=== PATIENT | female | born 1955 | race Caucasian/White ===

== ENCOUNTER 2016-06-18 12:51 | Emergency (ER) | payer OTHER ==
[~2016-06-18] VITALS: Ht 154.9 cm; Wt 81.0 kg
[~2016-06-18 12:51] MED LIST: DOXY100T PO; ESTR2TAB PO; LEVO100T4 PO; PERC5TAB12 PO; VENTAER INH; ZITH250T PO
[2016-06-18 13:05] VITALS: BP 156/85; PULSE 86; RESP 16; TEMP 98; O2SAT 97
[2016-06-18] MEDS ORDERED: ESTR1TAB PO (13:24)
[2016-06-18] MEDS ORDERED: LEVO.1 PO (13:24)
--- NOTE | 2016-06-18 13:29 | PD ---
HPI Chief Complaint: Fall Time Seen by Provider: 13:19 Travel History International Travel<30 days: No Contact w/Intl Traveler<30days: [place] Country Traveled to: [facility] Traveled to known affect area: No History of Present Illness HPI 60-year-old female presents to the ER today because she states that she tripped and fell while [place] cruise ship [place] ago, had a loss of consciousness, has been nauseous and lightheaded since the injury, has been having left rib pains. She denies any shortness of breath, fevers, vomiting, or any other symptoms. She states that she had just returned to port and wants to get checked out. She states the pain is a 10 out of 10. Modifying Factors: None Associated Signs & Symptoms: Trip and fall, head injury, loss of consciousness, nausea, lightheadedness, left rib pain Risk Factors: None PFSH Past Medical History Arthritis: Yes Cancer: Yes (SKIN) High Cholesterol: Yes Diminished Hearing: No Gastrointestinal Disorders: Yes (DIVERTICULOSIS) GERD: Yes Herniated Disk: Yes Migraines: Yes Pneumonia: Yes (BRONCHIAL) Seizures: Yes Thyroid Disease: Yes (HYPOTHYROID) Influenza Vaccination: No ?: Not LMP: Traci- Menopausal: Yes : 2 Para: 2 Past Surgical History Cholecystectomy: Yes Hysterectomy: Yes Tonsillectomy: Yes Other Surgery: Yes (C5, C6, C7 NECK FUSION WITH PLATE S/P WORK INJURY) Social History Alcohol Use: Yes ("MAYBE 4 A YEAR") Tobacco Use: No (QUIT AGE 44) Substance Use: No Allergies-Medications (Allergen,Severity, Reaction): Coded Allergies: Erythromycin (Verified Allergy, Severe, Nausea/Vomiting, 05/29/15) Flagyl (Verified Allergy, Severe, Swelling, 05/29/15) Keflex (Verified Allergy, Severe, Hives, 05/29/15) Cipro (Verified Allergy, Unknown, HIVES, 05/29/15) Reported Meds & Prescriptions Reported Meds & Active Scripts Active Reported Estradiol 1 Mg Tab 1 Mg PO DAILY Synthroid (Levothyroxine Sodium) 100 Mcg Tab 100 Mcg PO DAILY Review of Systems Except as stated in HPI: all other systems reviewed are Neg Physical Exam Narrative GENERAL: Well-developed middle age white female patient currently awake, alert and oriented 3. SKIN: Focused skin assessment warm/dry. HEAD: Atraumatic. Normocephalic. EYES: Pupils equal and round. No scleral icterus. No injection or drainage. ENT: No nasal bleeding or discharge. Mucous membranes pink and moist. NECK: Trachea midline. No JVD. CARDIOVASCULAR: Regular rate and rhythm. No murmur appreciated. CHEST: Mild left lateral chest wall tenderness without deformity or crepitance. No retractions or use of accessory muscles. RESPIRATORY: No accessory muscle use. Clear to auscultation. Breath sounds equal bilaterally. GASTROINTESTINAL: Abdomen soft, non-tender, nondistended. Hepatic and splenic margins not palpable. MUSCULOSKELETAL: No obvious deformities. No clubbing. No cyanosis. No edema. NEUROLOGICAL: Awake and alert. No obvious cranial nerve deficits. Motor grossly within normal limits. Normal speech. PSYCHIATRIC: Appropriate mood and affect; insight and judgment normal. Data Data Last Documented VS Vital Signs Date Time Temp Pulse Resp B/P Pulse Ox O2 Delivery O2 Flow Rate FiO2 06/18/16 13:05 98.0 86 16 156/[address] Brain W/O Iv Contrast(Rout) (06/18/16 13:19) Ct Cerv Spine W/O Contrast (06/18/16 13:19) Ribs, Uni (W/Exp Cxr-Min 3vw) (06/18/16 13:29) MDM Medical Decision Making Medical Screen Exam Complete: Yes Emergency Medical Condition: Yes Medical Record Reviewed: Yes Interpretation(s) Last 24 hours Impressions Ribs X-Ray 06/18/16 1329 Signed Impressions: Service Date/Time: Saturday, June 18, 2016 13:33 - CONCLUSION: No evidence of displaced rib fracture or acute cardiopulmonary process. Christoph De La Rosa MD Head CT 06/18/16 1319 Signed Impressions: Service Date/Time: Saturday, June 18, 2016 13:37 - CONCLUSION: Negative exam. Quan Toscano MD Differential Diagnosis Trip and fall, head injury, left rib painsrib fractures versus contusions versus acute intracranial injuries Narrative Course X-rays and CAT scans did not reveal any signs of acute processes. At this point , my plan would be to release the patient with follow-up to primary care physician. Return for any worsening in symptoms as needed. The plan has discussed with her and she states understanding. Diagnosis Primary Impression: Concussion Additional Impression: Contusion of rib on left side Med/Other Pt SpecificInfo: Prescription(s) given Scripts Ondansetron Odt (Zofran Odt)4 Mg Tab4 Mg SL Q6HR PRN (Nausea/Vomiting) #7 TAB Ref 0 Prov:Rachel Myles MD 06/18/16 Hydrocodone-Acetaminophen (Lortab)5-325 Mg Tab1 Tab PO Q6H PRN (PAIN) #15 TAB Ref 0 Prov:Rachel Myles MD 06/18/16 Disposition: 01 DISCHARGE HOME Condition: Stable Rachel Myles MD Jun 18, 2016 13:29
--- NOTE | 2016-06-18 14:01 | RADHPO ---
EXAM DATE/TIME: 06/18/2016 13:33 [facility] COMPARISON: No previous studies available for comparison. INDICATIONS : Fall, complains of left posterior rib pain. MEDICAL HISTORY : None. SURGICAL HISTORY : None. ENCOUNTER: Initial ACUITY: 4 - 6 days PAIN SCORE: 10/10 LOCATION: Left posterior Ribs FINDINGS: Multiple views of the left ribs were performed. There is no evidence of displaced fracture. No dest ructive lesions or areas of periosteal thickening are seen. Expiratory view of the chest is negative for pneumothorax. The mediastinal structures are midline. CONCLUSION: No evidence of displaced rib fracture or acute cardiopulmonary process. Christoph De La Rosa MD on June 18, 2016 at 13:59 Board Certified Radiologist. This report was verified electronically.
--- NOTE | 2016-06-18 14:02 | RADHPO ---
EXAM DATE/TIME: 06/18/2016 13:37 [facility] COMPARISON: No previous studies available for comparison. INDICATIONS : Fell and hit head. RADIATION DOSE: 57.76 CTDIvol (mGy) MEDICAL HISTORY : Seizures. Hypothyroidism. SURGICAL HISTORY : Tonsillectomy. Fusion, cervical. ENCOUNTER: Initial ACUITY: 4 - 6 days PAIN SCALE: 5/10 LOCATION: cranial TECHNIQUE: Multiple contiguous axial images were obtained of the head. Using automated exposure control and adj ustment of the mA and/or kV according to patient size, radiation dose was kept as low as reasonably a chievable to obtain optimal diagnostic quality images. FINDINGS: CEREBRUM: The ventricles are normal for age. No evidence of midline shift, mass lesion, hemorrhage or acute in farction. No extra-axial fluid collections are seen. POSTERIOR FOSSA: The cerebellum and brainstem are intact. The 4th ventricle is midline. The cerebellopontine angle i s unremarkable. EXTRACRANIAL: The visualized portion of the orbits is intact. SKULL: The calvaria is intact. No evidence of skull fracture. CONCLUSION: Negative exam. Quan Toscano MD on June 18, 2016 at 13:59 Board Certified Radiologist. This report was verified electronically.
--- NOTE | 2016-06-18 14:14 | RADHPO ---
EXAM DATE/TIME: 06/18/2016 13:37 [facility] COMPARISON: No previous studies available for comparison. INDICATIONS : Fell and hit head. RADIATION DOSE: 25.62 CTDIvol (mGy) MEDICAL HISTORY : Hypothyroidism. Seizures. SURGICAL HISTORY : Tonsillectomy. Fusion, cervical. ENCOUNTER: Initial ACUITY: 4 - 6 days PAIN SCALE: 5/10 LOCATION: neck TECHNIQUE: Volumetric scanning of the cervical spine was performed. Multiplanar reconstructions in the sagittal, coronal and oblique axial planes were performed. Using automated exposure control and adjustment o f the mA and/or kV according to patient size, radiation dose was kept as low as reasonably achievable to obtain optimal diagnostic quality images. FINDINGS: No significant subluxation or soft tissue swelling is seen. Surgical screws traverse the bodies of C5 -6 and C6-7 with a plate placed anteriorly and evidence for anterior fusion. No definite fracture is identified for technique. C2-C3: No appreciable compromise to the thecal sac, exiting nerve roots are seen. The neural fora miranda are patent bilaterally. No appreciable thecal sac stenosis is seen. C3-C4: Slight degenarative changes are seen within the disc space and facets. There is slight adam ral foramina compromise on the left due to asymmetrical bulging disc and hypertrophic changes. Slight bulging disc and hypertrophic changes are seen with indentation on the thecal sac and no significant compromise to the thecal sac. C4-C5: Slight degenarative changes are seen within the disc space and facets. Slight osteophyte f ormation bulging disc protrude posteriorly partially into the bilateral lateral recess without any si gnificant lateral recess stenosis. Slight bulging disc and hypertrophic changes are seen with indenta tion on the thecal sac and no significant compromise to the thecal sac or the exiting nerve roots. C5-C6: No appreciable compromise to the thecal sac, exiting nerve roots are seen. The neural fora miranda are patent bilaterally. No appreciable thecal sac stenosis is seen. C6-C7: No appreciable compromise to the thecal sac, exiting nerve roots are seen. The neural fora miranda are patent bilaterally. No appreciable thecal sac stenosis is seen. C7-T1: No appreciable compromise to the thecal sac, exiting nerve roots are seen. The neural fora miranda are patent bilaterally. No appreciable thecal sac stenosis is seen. IMPRESSION: Chronic changes without any fracture or any significant compromise to the exiting nerve roots or the thecal sac. Tomasz Monaco MD on June 18, 2016 at 14:06 Board Certified Radiologist. This report was verified electronically.
[2016-06-18] MEDS ORDERED: ZOFR4TAB3 SL (14:18)
[2016-06-18] MEDS ORDERED: HYDR-3533 PO (14:18)
== END 2016-06-18 14:33 | disposition home or self-care (01) ==
LOC: PHED 12:51
DX: S20.212A Contusion of left front wall of thorax, initial encounter (principal); S06.0X9A Concussion with loss of consciousness of unspecified duration, initial encounter; E78.00 Pure hypercholesterolemia, unspecified; E03.9 Hypothyroidism, unspecified; W01.0XXA Fall on same level from slipping, tripping and stumbling without subsequent striking against object, initial encounter; Y93.89 Activity, other specified; Y92.814 Boat as the place of occurrence of the external cause; Y99.8 Other external cause status
CPT/HCPCS: 70450; 71101; 72125